=== PATIENT | male | born 1970 | race Caucasian/White ===

== ENCOUNTER 2018-03-10 15:04 | Emergency (ER) | payer OTHER ==
[~2018-03-10] VITALS: Ht 172.7 cm; Wt 97.5 kg
[2018-03-10 15:11] VITALS: BP 135/85; Ht 172.7 cm; Wt 97.5 kg
== END 2018-03-10 19:40 | disposition home or self-care (01) ==
LOC: ED 15:04
DX: S43.004A Unspecified dislocation of right shoulder joint, initial encounter (principal); V87.8XXA Person injured in other specified noncollision transport accidents involving motor vehicle (traffic), initial encounter; Y93.55 Activity, bike riding; Y92.413 State road as the place of occurrence of the external cause; Y99.8 Other external cause status
CPT/HCPCS: J1885